=== PATIENT | female | born 1945 | race Caucasian/White ===

== ENCOUNTER → 2018-11-01 | Emergency (ER) | payer BC ==
[~2018-11-01] VITALS: Wt 80.0 kg
[~2018-11-01] MED LIST: LORAZEPAM 0.5 MG TAB PO ONE; MECL12.574 PO; ONDANSETRON 4 MG INJ IV STA; SOD CHLORIDE 0.9% 500 ML IV ONE
--- NOTE | 2018-11-01 09:03 | ERD ---
ER Documentation Chief Complaint Chief Complaint dizzines and nausea HPI 73-year-old female brought to the emergency department by paramedics for evaluation of dizziness and nausea. History available via translation from the family. Patient was in her normal state of excellent health until this morning at which time she awoke with a vertiginous dizziness. She reported no acute headache, focal weakness, numbness, difficulty speaking. After the dizziness began, she had nausea with nonbilious, nonbloody emesis. The paramedics were then called. She had no concurrent chest pain or shortness of breath. I have reviewed the [employer] pre-hospital care. Pre-hospital vital signs were reviewed. Pre-hospital diagnostic tests were reviewed. ROS All systems reviewed and are negative except as per history of present illness. Medications Home Meds Active Scripts Meclizine Hcl* (Antivert*) 12.5 Mg Tab, 12.5 MG PO Q6H PRN for DIZZINESS, #20 TAB Prov:EVE DYER 11/01/18 FmHx Noncontributory for chief complaint Physical Exam Vitals Vital Signs Date Temp Pulse Resp B/P (MAP) Pulse Ox O2 O2 Flow FiO2 Time Delivery Rate 11/01/18 98.1 86 18 128/80 99 08:04 (96) Physical Exam GENERAL: The patient is well developed and appropriate for usual state of health in no apparent distress HEENT: Pupils equal, round, and reactive to light. EOMI. There is no scleral icterus. NECK: C-spine is soft and supple, there is no meningismus. There is no cervical lymphadenopathy. LUNGS: Clear to auscultation bilaterally. There are no rales, wheezes or rhonchi. HEART: Regular rate and rhythm, no murmurs, clicks, rubs or gallops. ABDOMEN: Soft, non-tender, non-distended. There are bowel sounds in all four quadrants. No rebound or guarding. EXTREMITIES: There is no peripheral cyanosis or edema. No focal swelling or erythema. NEURO: The patient moves all four extremities with 5/5 strength. Cranial nerves II - XII are intact. No vertical or rotational nystagmus, normal gait. Alert and oriented. Finger to nose is normal bilaterally. SKIN: There is no apparent rash or petechiae. HEME/LYMPHATIC: There is no evidence of excessive bruising or lymphedema. PSYCHIATRIC: The patient does not appear anxious or depressed. Result Diagram: 11/01/18 0808 11/01/18 0808 Results 24 hrs Laboratory Tests Test 11/01/18 08:08 White Blood Count 7.9 10^3/ul Red Blood Count 4.31 10^6/ul Hemoglobin 13.0 g/dl Hematocrit 38.3 % Mean Corpuscular Volume 88.9 fl Mean Corpuscular Hemoglobin 30.2 pg Mean Corpuscular Hemoglobin Concent 33.9 g/dl Red Cell Distribution Width 12.7 % Platelet Count 286 10^3/UL Mean Platelet Volume 9.4 fl Immature Granulocytes % 0.400 % Neutrophils % 60.5 % Lymphocytes % 29.0 % Monocytes % 7.3 % Eosinophils % 2.0 % Basophils % 0.8 % Nucleated Red Blood Cells % 0.0 /100WBC Immature Granulocytes # 0.030 10^3/ul Neutrophils # 4.8 10^3/ul Lymphocytes # 2.3 10^3/ul Monocytes # 0.6 10^3/ul Eosinophils # 0.2 10^3/ul Basophils # 0.1 10^3/ul Nucleated Red Blood Cells # 0.0 10^3/ul Sodium Level 141 mmol/L Potassium Level 3.7 mmol/L Chloride Level 107 mmol/L Carbon Dioxide Level 22 mmol/L Anion Gap 12 Blood Urea Nitrogen 16 mg/dl Creatinine 0.58 mg/dl Est Glomerular Filtrat Rate mL/min mL/min Glucose Level 138 mg/dl Calcium Level 9.6 mg/dl Troponin I < 0.012 ng/ml Current Medications Medications Dose Sig/Jose Start Time Status Last (Trade) Ordered Route PRN Stop Time Admin Dose Reason Admin Sodium 500 ml @ Q1H ONCE 11/01/18 11/01/18 Chloride 500 mls/hr IV 08:30 08:19 11/01/18 09:29 Ondansetron 4 mg ONCE STAT 11/01/18 DC 11/01/18 HCl (Zofran IV 08:04 08:17 Inj) 11/01/18 08:06 Lorazepam 0.5 mg ONCE ONCE 11/01/18 DC 11/01/18 (Ativan) PO 08:30 08:17 11/01/18 08:31 Procedures/MDM Patient was taken to a room, seen and evaluated. Comfort measures were initiated. Diagnostic tests were ordered and reviewed. 3 LEAD RHYTHM STRIP: Normal sinus rhythm without ectopy EK lead EKG reviewed by myself: Normal Sinus Rhythm Normal [place] and intervals No ST elevation, depression, or T wave inversion Impression: Normal EKG RADIOLOGY: Reviewed with the radiologist REEVALUATION: 0900: Diagnostic tests were appreciated and discussed with the patient and family. She remained neurologically normal, hemodynamic is stable and cardiovascularly normal. MEDICAL DECISION MAKIN-year-old female presents with vertigo. Patient has no findings for central vertigo at this time with no evidence of stroke. Furthermore, her dizziness does not appear to be cardiac related. She has been vomiting but she has no evidence of abdominal symptoms. Overall, patient appears to be clinically nontoxic after supportive care and seems appropriate for outpatient care. Departure Diagnosis: Primary Impression: Dizziness Condition: Stable Patient Instructions: Dizziness (Vertigo) and Balance Problems: Ensuring Your Safety, Dizziness, Unk Cause Additional Instructions: See your doctor for follow-up as discussed. Take a copy of your test results, if appropriate, to this follow-up visit. See your doctor or return here if your symptoms do not improve as expected. At any time, please return to the emergency department for any change or worsening in her symptoms. VEE DYER Nov 01, 2018 09:03
[2018-11-01 09:11] VITALS: BP 130/78; PULSE 84; RESP 20
== END | disposition home or self-care (01) ==
LOC: E/R 08:01
DX: R42 Dizziness and giddiness (principal); R11.0 Nausea
CPT/HCPCS: 36415; 71045; 80048; 84484; 85025; 93005; 96374; J2405; J7040; Z7502; Z7610